=== PATIENT | male | born 2000 | race Caucasian/White ===

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

== ENCOUNTER 2023-09-18 16:58 | Emergency (ER) | payer OTHER ==
[~2023-09-18] VITALS: Ht 188 cm; Wt 80.0 kg
[2023-09-18 17:07] VITALS: TEMP 98
[2023-09-18] MEDS ORDERED: ARIP5TAB37 PO (17:07)
[2023-09-18] MEDS ORDERED: TRAZ-252 PO (17:07)
[2023-09-18] MEDS ORDERED: HYDR-4584 PO (17:07)
[2023-09-18] MEDS ORDERED: SERT-440 PO (17:07)
[2023-09-18 17:53] LABS: COVID AG,FIA SOURCE NASAL SWAB
[2023-09-18 17:54] LABS: BASOPHILS % (AUTO) 0.3 % (0.0-2.0); EOSINOPHILS % (AUTO) 0.7 % (1.0-6.0); HEMATOCRIT 46.3 % (41-53); LYMPHOCYTES # (AUTO) 2.6 K/uL (1.0-4.8); LYMPHOCYTES % (AUTO) 34.3 % (22.0-44.0); MEAN CORPUSCULAR HEMOGLOBIN 30.1 pg (26.0-34.0); MEAN CORPUSCULAR HGB CONC 34.7 G/dL (31.0-37.0); MEAN CORPUSCULAR VOLUME 87 fL (80-100); MONOCYTES # (AUTO) 0.3 K/uL (0.1-1.0); MONOCYTES % (AUTO) 4.1 % (2.0-9.0); NEUTROPHILS # (AUTO) 4.7 K/uL (1.8-7.7); NEUTROPHILS % (AUTO) 60.6 % (40.0-70.0); PLATELET COUNT (AUTO) 230 K/uL (150-450); RED BLOOD CELL COUNT(AUTO) 5.34 MIL/uL (4.50-5.90); RED CELL DISTRIBUTION WIDTH 13.7 % (11.5-14.5); WHITE BLOOD COUNT (AUTO) 7.7 K/uL (4.5-11.0)
[2023-09-18 18:11] LABS: ANION GAP 14 mmol/L (8-16); CALCIUM, TOTAL 9.6 mg/dL (8.8-10.5); CARBON DIOXIDE 24 mmol/L (22-29); CHLORIDE 110 mmol/L (98-107); CREATININE 0.75 mg/dL (0.60-1.30); GLOMERULAR FILTR. RATE CALC > 60 mL/min (>60); GLUCOSE,RANDOM 99 mg/dL (70-110); POTASSIUM 4.5 mmol/L (3.5-5.1); SODIUM SERUM 148 mmol/L (136-145); UREA NITROGEN, BLOOD 10 mg/dL (7-18)
[2023-09-18 18:18] LABS: TROPONIN I-HIGH SENSITIVITY 4 ng/L (<76)
[2023-09-18 18:25] LABS: B-TYPE NATRIURETIC PEPTIDE < 5 pg/mL (0-100)
[2023-09-18 18:33] LABS: SARS-COV2 (COVID) ANTIGEN,FIA Negative (Negative)
[2023-09-18 18:37] LABS: ALANINE AMINOTRANSFERASE 26 U/L (12-78); ALBUMIN 4.8 g/dL (3.4-5.0); ALKALINE PHOSPHATASE 100 U/L (46-116); ASPARTATE AMINOTRANSFERASE 24 U/L (15-37); BILIRUBIN,TOTAL 0.5 mg/dL (0.1-1.0); CREATINE KINASE, TOTAL ONLY 110 U/L (39-308); TOTAL PROTEIN, SERUM 8.7 g/dL (6.4-8.2)
[2023-09-18 18:39] LABS: INFLUENZA TYPE A NEGATIVE FOR TYPE A (NEGATIVE); INFLUENZA TYPE B NEGATIVE FOR TYPE B (NEGATIVE)
[2023-09-18 18:40] VITALS: BP 135/86; PULSE 81; RESP 20
[2023-09-18 18:50] LABS: ALCOHOL, BLOOD (SERUM) < 3 mg/dL (0-10)
== END 2023-09-18 19:09 | disposition home or self-care (01) ==
LOC: EMS 17:01
DX: R07.89 Other chest pain (principal); F41.9 Anxiety disorder, unspecified; F32.A Depression, unspecified; Z98.890 Other specified postprocedural states; Z20.822 Contact with and (suspected) exposure to COVID-19
CPT/HCPCS: 99285; 71045; 87426; 80053; 82550; 83880; 84484; 85025; 87804; 36415; 93005; G0480

== ENCOUNTER 2023-09-22 21:22 | Emergency (ER) | payer OTHER ==
[~2023-09-22] VITALS: Ht 188 cm; Wt 74.0 kg
[~2023-09-22 21:22] MED LIST: ARIP5TAB37 PO; HYDR-4584 PO; SERT-440 PO; TRAZ-252 PO
[2023-09-22 21:52] VITALS: TEMP 98.4
[2023-09-22 23:00] VITALS: BP 127/65; PULSE 70; RESP 18
== END 2023-09-23 01:06 | disposition home or self-care (01) ==
LOC: EMS 21:55
DX: F41.9 Anxiety disorder, unspecified (principal); F32.A Depression, unspecified; Z98.890 Other specified postprocedural states
CPT/HCPCS: 93005; 99283

== ENCOUNTER 2024-02-25 14:03 | Inpatient (IN) | payer MEDICAID, OTHER ==
[~2024-02-25] VITALS: Ht 188 cm; Wt 66.2 kg
[2024-02-25 15:47] LABS: BASOPHILS % (AUTO) 0.4 % (0.0-2.0); EOSINOPHILS % (AUTO) 0.2 % (1.0-6.0); HEMATOCRIT 46.8 % (41-53); HEMOGLOBIN 15.5 g/dL (13.5-17.5); LYMPHOCYTES # (AUTO) 1.7 K/uL (1.0-4.8); LYMPHOCYTES % (AUTO) 22.4 % (22.0-44.0); MEAN CORPUSCULAR HEMOGLOBIN 29.6 pg (26.0-34.0); MEAN CORPUSCULAR HGB CONC 33.2 G/dL (31.0-37.0); MEAN CORPUSCULAR VOLUME 89 fL (80-100); MONOCYTES # (AUTO) 0.5 K/uL (0.1-1.0); MONOCYTES % (AUTO) 7.3 % (2.0-9.0); NEUTROPHILS # (AUTO) 5.2 K/uL (1.8-7.7); NEUTROPHILS % (AUTO) 69.7 % (40.0-70.0); PLATELET COUNT (AUTO) 285 K/uL (150-450); RED BLOOD CELL COUNT(AUTO) 5.25 MIL/uL (4.50-5.90); RED CELL DISTRIBUTION WIDTH 13.3 % (11.5-14.5); WHITE BLOOD COUNT (AUTO) 7.5 K/uL (4.5-11.0)
[2024-02-25 15:54] LABS: ALCOHOL, URINE DRUG SCREEN NEGATIVE (NEGATIVE); AMPHET/METH SCREEN,URINE NEGATIVE (NEGATIVE); BARBITURATE SCREEN, URINE NEGATIVE (NEGATIVE); BENZODIAZEPINES SCREEN,URINE NEGATIVE (NEGATIVE); CANNABINOID SCREEN,URINE NEGATIVE (NEGATIVE); COCAINE SCREEN,URINE NEGATIVE (NEGATIVE); METHADONE SCREEN, URINE NEGATIVE (NEGATIVE); OPIATE SCREEN,URINE NEGATIVE (NEGATIVE); PHENCYCLIDINE SCREEN,URINE NEGATIVE (NEGATIVE)
[2024-02-25 15:58] LABS: ANION GAP 9 mmol/L (8-16); CALCIUM, TOTAL 9.7 mg/dL (8.8-10.5); CARBON DIOXIDE 27 mmol/L (22-29); CHLORIDE 101 mmol/L (98-107); CREATININE 0.76 mg/dL (0.60-1.30); GLOMERULAR FILTR. RATE CALC > 60 mL/min (>60); GLUCOSE,RANDOM 120 mg/dL (70-110); POTASSIUM 4.5 mmol/L (3.5-5.1); SODIUM SERUM 137 mmol/L (136-145); UREA NITROGEN, BLOOD 7 mg/dL (7-18)
[2024-02-25 15:59] LABS: ALCOHOL, BLOOD (SERUM) < 3 mg/dL (0-10)
[2024-02-25 16:04] LABS: ALANINE AMINOTRANSFERASE 32 U/L (12-78); ALBUMIN 4.9 g/dL (3.4-5.0); ALKALINE PHOSPHATASE 93 U/L (46-116); ASPARTATE AMINOTRANSFERASE 37 U/L (15-37); BILIRUBIN,TOTAL 0.8 mg/dL (0.1-1.0); TOTAL PROTEIN, SERUM 8.4 g/dL (6.4-8.2)
[2024-02-25] MEDS: LORazepam 2 MG/ML VIAL IM ONE (16:40)
[2024-02-25] MEDS: HALOPERIDOL LACTATE 5 MG/ML VIAL IM ONE (16:40)
[2024-02-25] MEDS: DiphenhydrAMINE HCL 50 MG/ML VIAL IM ONE (16:40)
[2024-02-25] MEDS ORDERED: ZOLPIDEM TARTRATE 10 MG TABLET PO PRN (17:45)
[2024-02-25 17:53] LABS: COVID AG,FIA SOURCE NASAL SWAB
[2024-02-25 18:08] LABS: SARS-COV2 (COVID) ANTIGEN,FIA Negative (Negative)
[2024-02-26 10:25] VITALS: BP 136/78; PULSE 95; RESP 18; TEMP 99.5; O2SAT 100
[2024-02-26] MEDS: HALOPERIDOL 5 MG TABLET PO PRN (16:11)
[2024-02-26] MEDS: LORazepam 2 MG TABLET PO PRN (16:11)
[2024-02-26 20:06] VITALS: BP 122/74; PULSE 95; RESP 18; TEMP 99; O2SAT 98
[2024-02-27] MEDS ORDERED: LOPERAMIDE HCL 2 MG CAPSULE PO PRN (07:15)
[2024-02-27] MEDS ORDERED: ONDANSETRON HCL 4 MG TABLET PO PRN (07:15)
[2024-02-27] MEDS ORDERED: GuaiFENesin/D-METHORPHAN [SUGAR-FREE] 200-20MG/10 ML SYRUP UDCUP PO PRN (07:15)
[2024-02-27] MEDS ORDERED: CloNIDine HCL 0.1 MG TABLET PO PRN (07:15)
[2024-02-27] MEDS ORDERED: PETROLATUM,WHITE 28 GM JELLY TP PRN (07:15)
[2024-02-27] MEDS ORDERED: MAG HYDROX/ALUMINUM HYD/SIMETH ES 30 ML SUSPENSION UDCUP PO PRN (07:15)
[2024-02-27] MEDS ORDERED: MAGNESIUM HYDROXIDE SUSPENSION 30 ML UDCUP PO PRN (07:15)
[2024-02-27] MEDS ORDERED: NICOTINE 14 MG/24 HOUR PATCH TD PRN (07:15)
[2024-02-27] MEDS ORDERED: ALBUTEROL SULFATE HFA 90 MCG/PUFF 8 GM INHALER IH PRN (07:15)
[2024-02-27] MEDS ORDERED: IBUPROFEN 400 MG TABLET PO PRN (07:15)
[2024-02-27] MEDS ORDERED: ACETAMINOPHEN 325 MG TABLET PO PRN (07:15)
[2024-02-27 08:30] VITALS: BP 123/73; PULSE 111; RESP 16; TEMP 98.7; O2SAT 99
[2024-02-27] MEDS: ARIPiprazole 10 MG TABLET PO SCH (12:16)
[2024-02-27] MEDS: SERTRALINE HCL 100 MG TABLET PO SCH (12:16)
[2024-02-27 20:16] VITALS: BP 120/71; PULSE 89; TEMP 98.4; O2SAT 99
[2024-02-28 08:51] VITALS: BP 115/82; PULSE 98; RESP 17; TEMP 97.8; O2SAT 96
[2024-02-28 09:53] LABS: HEMOGLOBIN A1C 5.2 % (3.8-5.6)
[2024-02-28 10:04] LABS: CHOL/HDL RATIO 2.6 (4.2-7.3); THYROID STIMULATING HORMONE 0.52 uIU/mL (0.36-3.74)
[2024-02-28 20:15] VITALS: BP 139/89; PULSE 89; TEMP 98.4; O2SAT 97
[2024-02-29 08:29] VITALS: BP 123/82; PULSE 105; RESP 16; TEMP 98.4; O2SAT 99
[2024-02-29] MEDS: DOCUSATE SODIUM 100 MG CAPSULE PO PRN (08:58)
[2024-02-29] MEDS ORDERED: SERT-162 PO (10:07)
[2024-02-29] MEDS ORDERED: ARIP10TA38 PO ×2 (10:08→12:20)
[2024-02-29] MEDS ORDERED: SERT-440 PO (12:20)
== END 2024-02-29 11:45 | disposition home or self-care (01) | DRG 750 ==
LOC: EMS 14:03 → B3A 02-26 08:28
PROVIDERS: ADMIT Psychiatry & Neurology Child & Adolescent Psychiatry; ATTEND Psychiatry & Neurology Child & Adolescent Psychiatry
DX: F25.0 Schizoaffective disorder, bipolar type (principal); E44.0 Moderate protein-calorie malnutrition; Z20.822 Contact with and (suspected) exposure to COVID-19; R73.9 Hyperglycemia, unspecified; G47.00 Insomnia, unspecified; F22 Delusional disorders; Z68.1 Body mass index [BMI] 19.9 or less, adult
CPT/HCPCS: 80053; 80061; 80307; 83036; 84443; 85025; G0480; J1200; J1630; J2060

== ENCOUNTER 2024-03-07 11:05 | Inpatient (IN) | payer MEDICAID, OTHER ==
[~2024-03-07] VITALS: Ht 188 cm; Wt 66.0 kg
[~2024-03-07 11:05] MED LIST changes: +ARIP10TA38 PO; -ARIP5TAB37 PO; -HYDR-4584 PO; +SERT-162 PO; -TRAZ-252 PO
[2024-03-07] MEDS ORDERED: LORazepam 2 MG TABLET PO PRN ×2 (12:00→23:00)
[2024-03-07] MEDS ORDERED: QUEtiapine FUMARATE 100 MG TABLET PO PRN (12:00)
[2024-03-07] MEDS ORDERED: ZOLPIDEM TARTRATE 10 MG TABLET PO PRN (12:00)
[2024-03-07 12:04] LABS: BASOPHILS % (AUTO) 0.2 % (0.0-2.0); EOSINOPHILS % (AUTO) 0.1 % (1.0-6.0); HEMATOCRIT 44.9 % (41-53); HEMOGLOBIN 14.8 g/dL (13.5-17.5); LYMPHOCYTES # (AUTO) 0.9 K/uL (1.0-4.8); MEAN CORPUSCULAR HEMOGLOBIN 29.7 pg (26.0-34.0); MEAN CORPUSCULAR HGB CONC 32.9 G/dL (31.0-37.0); MEAN CORPUSCULAR VOLUME 90 fL (80-100); MONOCYTES # (AUTO) 0.4 K/uL (0.1-1.0); MONOCYTES % (AUTO) 6.5 % (2.0-9.0); NEUTROPHILS # (AUTO) 4.9 K/uL (1.8-7.7); NEUTROPHILS % (AUTO) 79.2 % (40.0-70.0); PLATELET COUNT (AUTO) 239 K/uL (150-450); RED BLOOD CELL COUNT(AUTO) 4.99 MIL/uL (4.50-5.90); RED CELL DISTRIBUTION WIDTH 13.7 % (11.5-14.5); WHITE BLOOD COUNT (AUTO) 6.1 K/uL (4.5-11.0)
[2024-03-07] MEDS: LORazepam 1 MG TABLET PO ONE (12:13)
[2024-03-07] MEDS: HALOPERIDOL 5 MG TABLET PO ONE (12:13)
[2024-03-07 12:14] LABS: ANION GAP 11 mmol/L (8-16); CALCIUM, TOTAL 9.4 mg/dL (8.8-10.5); CARBON DIOXIDE 26 mmol/L (22-29); CHLORIDE 100 mmol/L (98-107); CREATININE 0.88 mg/dL (0.60-1.30); GLOMERULAR FILTR. RATE CALC > 60 mL/min (>60); GLUCOSE,RANDOM 125 mg/dL (70-110); SODIUM SERUM 136 mmol/L (136-145); UREA NITROGEN, BLOOD 7 mg/dL (7-18)
[2024-03-07 12:19] LABS: ALANINE AMINOTRANSFERASE 31 U/L (12-78); ALBUMIN 4.4 g/dL (3.4-5.0); ALKALINE PHOSPHATASE 86 U/L (46-116); ASPARTATE AMINOTRANSFERASE 35 U/L (15-37); BILIRUBIN,TOTAL 0.5 mg/dL (0.1-1.0); TOTAL PROTEIN, SERUM 7.8 g/dL (6.4-8.2)
[2024-03-07 12:22] LABS: ALCOHOL, BLOOD (SERUM) < 3 mg/dL (0-10)
[2024-03-07 12:47] LABS: COVID AG,FIA SOURCE NASAL SWAB
[2024-03-07] MEDS: HALOPERIDOL 5 MG TABLET PO PRN (12:59)
[2024-03-07] MEDS: LORazepam 2 MG TABLET PO PRN (12:59)
[2024-03-07 14:01] LABS: SARS-COV2 (COVID) ANTIGEN,FIA Positive (Negative)
[2024-03-07] MEDS ORDERED: BACITRACIN 28 GM OINTMENT TP PRN (16:30)
[2024-03-07] MEDS ORDERED: MAGNESIUM HYDROXIDE SUSPENSION 30 ML UDCUP PO PRN (16:30)
[2024-03-07] MEDS ORDERED: BENZOCAINE/MENTHOL LOZENGE PO PRN (16:30)
[2024-03-07] MEDS ORDERED: DOCUSATE SODIUM 100 MG CAPSULE PO PRN (16:30)
[2024-03-07] MEDS ORDERED: ALBUTEROL SULFATE HFA 90 MCG/PUFF 8 GM INHALER IH PRN (16:30)
[2024-03-07] MEDS ORDERED: CloNIDine HCL 0.1 MG TABLET PO PRN (16:30)
[2024-03-07] MEDS ORDERED: PETROLATUM,WHITE 28 GM JELLY TP PRN (16:30)
[2024-03-07] MEDS ORDERED: MAG HYDROX/ALUMINUM HYD/SIMETH ES 30 ML SUSPENSION UDCUP PO PRN (16:30)
[2024-03-07] MEDS ORDERED: IBUPROFEN 600 MG TABLET PO PRN (16:30)
[2024-03-07] MEDS ORDERED: ONDANSETRON HCL 4 MG TABLET PO PRN (16:30)
[2024-03-07] MEDS ORDERED: LOPERAMIDE HCL 2 MG CAPSULE PO PRN (16:30)
[2024-03-07] MEDS ORDERED: OMEPRAZOLE 20 MG CAPSULE PO PRN (16:30)
[2024-03-07] MEDS ORDERED: ACETAMINOPHEN 325 MG TABLET PO PRN (19:00)
[2024-03-07] MEDS ORDERED: ONDANSETRON HCL 4 MG/2 ML VIAL IVP PRN (19:00)
[2024-03-07] MEDS: LORazepam 2 MG/ML VIAL IM ONE (22:41)
[2024-03-07] MEDS: DiphenhydrAMINE HCL 50 MG/ML VIAL IM ONE (22:44)
[2024-03-07] MEDS: HALOPERIDOL LACTATE 5 MG/ML VIAL IM ONE (22:44)
[2024-03-07] MEDS ORDERED: LORazepam 2 MG/ML VIAL IVP PRN (23:15)
[2024-03-07 23:55] VITALS: BP 122/78; PULSE 87; RESP 20; TEMP 98.1
[2024-03-08] MEDS ORDERED: HEPARIN SODIUM,PORCINE 5,000 UNITS/ML VIAL SQ SCH
[2024-03-08] MEDS: MAGNESIUM SULFATE 2 GM, MVI, ADULT NO.1 WITH VIT K 10 ML, THIAMINE 100 MG, FOLIC ACID 1... IV ONE (03:04)
[2024-03-08 04:30] VITALS: BP 117/70; PULSE 102; RESP 18; TEMP 98.9
[2024-03-08] MEDS ORDERED: LORazepam 2 MG TABLET PO PRN (07:00)
[2024-03-08 07:01] LABS: BASOPHILS % (AUTO) 0.4 % (0.0-2.0); EOSINOPHILS % (AUTO) 0.4 % (1.0-6.0); HEMATOCRIT 44.2 % (41-53); HEMOGLOBIN 14.8 g/dL (13.5-17.5); LYMPHOCYTES # (AUTO) 0.9 K/uL (1.0-4.8); MEAN CORPUSCULAR HEMOGLOBIN 30.1 pg (26.0-34.0); MEAN CORPUSCULAR HGB CONC 33.4 G/dL (31.0-37.0); MEAN CORPUSCULAR VOLUME 90 fL (80-100); MONOCYTES # (AUTO) 0.5 K/uL (0.1-1.0); MONOCYTES % (AUTO) 8.9 % (2.0-9.0); NEUTROPHILS # (AUTO) 3.8 K/uL (1.8-7.7); NEUTROPHILS % (AUTO) 72.3 % (40.0-70.0); PLATELET COUNT (AUTO) 215 K/uL (150-450); RED BLOOD CELL COUNT(AUTO) 4.92 MIL/uL (4.50-5.90); RED CELL DISTRIBUTION WIDTH 13.6 % (11.5-14.5); WHITE BLOOD COUNT (AUTO) 5.2 K/uL (4.5-11.0)
[2024-03-08 07:18] LABS: ANION GAP 9 mmol/L (8-16); CALCIUM, TOTAL 9.5 mg/dL (8.8-10.5); CARBON DIOXIDE 27 mmol/L (22-29); CHLORIDE 102 mmol/L (98-107); CREATININE 0.89 mg/dL (0.60-1.30); GLOMERULAR FILTR. RATE CALC > 60 mL/min (>60); GLUCOSE,RANDOM 114 mg/dL (70-110); POTASSIUM 4.4 mmol/L (3.5-5.1); SODIUM SERUM 138 mmol/L (136-145); UREA NITROGEN, BLOOD 9 mg/dL (7-18)
[2024-03-08] MEDS: LORazepam 2 MG TABLET PO SCH (07:18)
[2024-03-08 08:05] VITALS: RESP 20
[2024-03-08] MEDS: DOCUSATE SODIUM 100 MG CAPSULE PO SCH (08:43)
[2024-03-08] MEDS: HALOPERIDOL LACTATE 5 MG/ML VIAL IM PRN (10:30)
[2024-03-08] MEDS: SERTRALINE HCL 100 MG TABLET PO SCH (12:13)
[2024-03-08] MEDS: ARIPiprazole 15 MG TABLET PO SCH (12:14)
[2024-03-08 15:01] VITALS: RESP 20
[2024-03-08 19:54] VITALS: BP 135/84; PULSE 107; RESP 20; TEMP 97.6
[2024-03-08] MEDS: ZOLPIDEM TARTRATE 10 MG TABLET PO PRN (23:15)
[2024-03-09 06:20] VITALS: RESP 20
[2024-03-09 08:36] VITALS: BP 144/92; PULSE 103; RESP 19; TEMP 98.4
[2024-03-09 16:52] VITALS: BP 142/99; PULSE 81; RESP 19; TEMP 97.6
[2024-03-09 20:30] VITALS: BP 147/91; PULSE 103; RESP 20; TEMP 98.3
[2024-03-09] MEDS ORDERED: ZOLPIDEM TARTRATE 5 MG TABLET PO PRN (20:30)
[2024-03-10 03:00] VITALS: BP 131/85; PULSE 87; RESP 20; TEMP 98.2
[2024-03-10] MEDS ORDERED: LORazepam 1 MG TABLET PO PRN (07:00)
[2024-03-10 08:08] VITALS: BP 130/85; PULSE 96; RESP 18; TEMP 98
[2024-03-10] MEDS: ACETAMINOPHEN 325 MG TABLET PO PRN (08:47)
[2024-03-10] MEDS ORDERED: LORazepam 1 MG TABLET PO SCH (09:00)
[2024-03-10 11:33] LABS: BASOPHILS % (AUTO) 0.3 % (0.0-2.0); EOSINOPHILS % (AUTO) 0.1 % (1.0-6.0); HEMATOCRIT 45.4 % (41-53); LYMPHOCYTES # (AUTO) 0.7 K/uL (1.0-4.8); LYMPHOCYTES % (AUTO) 9.1 % (22.0-44.0); MEAN CORPUSCULAR HEMOGLOBIN 29.7 pg (26.0-34.0); MEAN CORPUSCULAR HGB CONC 33.1 G/dL (31.0-37.0); MEAN CORPUSCULAR VOLUME 90 fL (80-100); MONOCYTES # (AUTO) 0.4 K/uL (0.1-1.0); MONOCYTES % (AUTO) 4.8 % (2.0-9.0); NEUTROPHILS # (AUTO) 6.4 K/uL (1.8-7.7); PLATELET COUNT (AUTO) 234 K/uL (150-450); RED BLOOD CELL COUNT(AUTO) 5.05 MIL/uL (4.50-5.90); RED CELL DISTRIBUTION WIDTH 13.1 % (11.5-14.5); WHITE BLOOD COUNT (AUTO) 7.4 K/uL (4.5-11.0)
[2024-03-10 11:34] LABS: NEUTROPHILS % (AUTO) 85.7 % (40.0-70.0)
[2024-03-10 11:58] LABS: TROPONIN I-HIGH SENSITIVITY Less Than 4 ng/L (<76)
[2024-03-10 12:24] LABS: ANION GAP 14 mmol/L (8-16); CALCIUM, TOTAL 9.4 mg/dL (8.8-10.5); CARBON DIOXIDE 21 mmol/L (22-29); CHLORIDE 97 mmol/L (98-107); CREATININE 1.09 mg/dL (0.60-1.30); GLOMERULAR FILTR. RATE CALC > 60 mL/min (>60); GLUCOSE,RANDOM 119 mg/dL (70-110); POTASSIUM 4.6 mmol/L (3.5-5.1); SODIUM SERUM 132 mmol/L (136-145); UREA NITROGEN, BLOOD 10 mg/dL (7-18)
[2024-03-10 12:40] LABS: GLUCOMETER DEV NAME(LOC) 4E.2; GLUCOSE,POINT OF CARE 137 MG/DL (70-110)
[2024-03-10 14:15] VITALS: BP 145/90; PULSE 111; RESP 18; TEMP 97.6
[2024-03-10] MEDS: LORazepam 2 MG/ML VIAL IVP PRN (15:06)
[2024-03-10 20:37] VITALS: BP 126/83; PULSE 109; RESP 18; TEMP 98.3
[2024-03-11 04:23] VITALS: BP 134/81; PULSE 100; RESP 18; TEMP 97.9
[2024-03-11] MEDS ORDERED: LORazepam 1 MG TABLET PO PRN (07:00)
[2024-03-11 08:20] VITALS: BP 132/86; PULSE 100; RESP 20; TEMP 97.7
[2024-03-11 15:15] VITALS: BP 135/85; PULSE 100; RESP 20; TEMP 97.5
[2024-03-11 19:12] VITALS: BP 133/81; PULSE 107; RESP 19; TEMP 98.2
[2024-03-12 04:50] VITALS: BP 117/78; PULSE 96; RESP 19; TEMP 97.9
[2024-03-12 07:10] VITALS: BP 124/80; PULSE 92; RESP 18; TEMP 98.1
[2024-03-12 15:18] VITALS: BP 128/84; PULSE 94; RESP 18; TEMP 97.8
[2024-03-12 16:59] LABS: COVID AG,FIA SOURCE NASAL SWAB
[2024-03-12 17:17] LABS: SARS-COV2 (COVID) ANTIGEN,FIA Negative (Negative)
== END 2024-03-12 21:30 | DRG 137 ==
LOC: EMS 11:05 → UNDOADMIN 13:05 → B3A 13:05 → EDH 19:01 → 4E 23:40
PROVIDERS: ADMIT Internal Medicine; ATTEND Internal Medicine
DX: U07.1 COVID-19 (principal); F25.9 Schizoaffective disorder, unspecified; F10.239 Alcohol dependence with withdrawal, unspecified
CPT/HCPCS: 71045; 80048; 80053; 82962; 83735; 84484; 85025; 87635; 93005; 93306; 99285; G0378; G0480; J1200; J1630; J2060; J3411; J3475; J3490; J7030; 36415-L1; 36415-TC

== ENCOUNTER 2024-03-12 15:00 | Inpatient (IN) | payer MEDICAID ==
[~2024-03-12] VITALS: Ht 188 cm; Wt 70.8 kg
[2024-03-12 21:35] VITALS: BP 139/88; PULSE 90; RESP 18; TEMP 98.2; O2SAT 98
[2024-03-13] MEDS: LORazepam 2 MG TABLET PO PRN (05:21)
[2024-03-13] MEDS ORDERED: PETROLATUM,WHITE 28 GM JELLY TP PRN (07:00)
[2024-03-13] MEDS ORDERED: LOPERAMIDE HCL 2 MG CAPSULE PO PRN (07:00)
[2024-03-13] MEDS ORDERED: CloNIDine HCL 0.1 MG TABLET PO PRN (07:00)
[2024-03-13] MEDS ORDERED: MAG HYDROX/ALUMINUM HYD/SIMETH ES 30 ML SUSPENSION UDCUP PO PRN (07:00)
[2024-03-13] MEDS ORDERED: ACETAMINOPHEN 325 MG TABLET PO PRN (07:00)
[2024-03-13] MEDS ORDERED: IBUPROFEN 600 MG TABLET PO PRN (07:00)
[2024-03-13] MEDS ORDERED: ALBUTEROL SULFATE HFA 90 MCG/PUFF 8 GM INHALER IH PRN (07:00)
[2024-03-13] MEDS ORDERED: DOCUSATE SODIUM 100 MG CAPSULE PO PRN (07:00)
[2024-03-13] MEDS ORDERED: MAGNESIUM HYDROXIDE SUSPENSION 30 ML UDCUP PO PRN (07:00)
[2024-03-13] MEDS ORDERED: ONDANSETRON HCL 4 MG TABLET PO PRN (07:00)
[2024-03-13] MEDS ORDERED: OMEPRAZOLE 20 MG CAPSULE PO PRN (07:00)
[2024-03-13] MEDS ORDERED: BACITRACIN 28 GM OINTMENT TP PRN (07:00)
[2024-03-13] MEDS ORDERED: BENZOCAINE/MENTHOL LOZENGE PO PRN (07:00)
[2024-03-13 08:30] VITALS: RESP 18
[2024-03-13] MEDS: ARIPiprazole 10 MG TABLET PO SCH (12:39)
[2024-03-13] MEDS: SERTRALINE HCL 100 MG TABLET PO SCH (12:39)
[2024-03-13 21:26] VITALS: BP 137/83; PULSE 97; RESP 18; TEMP 97.9; O2SAT 98
[2024-03-13] MEDS: HALOPERIDOL 5 MG TABLET PO PRN (21:30)
[2024-03-13] MEDS: ZOLPIDEM TARTRATE 10 MG TABLET PO PRN (22:09)
[2024-03-14 09:58] VITALS: BP 124/78; PULSE 90; RESP 20; TEMP 97.6; O2SAT 100
[2024-03-14 20:45] VITALS: BP 130/80; PULSE 86; RESP 19; TEMP 97.8; O2SAT 96
[2024-03-15 08:26] VITALS: BP 142/74; PULSE 89; RESP 18; TEMP 97.9; O2SAT 98
[2024-03-15] MEDS ORDERED: ARIP10TA38 PO (14:53)
[2024-03-15] MEDS ORDERED: SERT-440 PO (14:53)
== END 2024-03-15 19:55 | disposition home or self-care (01) | DRG 750 ==
LOC: 3EI 21:39
PROVIDERS: ADMIT Psychiatry & Neurology Child & Adolescent Psychiatry; ATTEND Psychiatry & Neurology Child & Adolescent Psychiatry
DX: F20.9 Schizophrenia, unspecified (principal); U07.1 COVID-19; F41.9 Anxiety disorder, unspecified; G47.00 Insomnia, unspecified; F10.90 Alcohol use, unspecified, uncomplicated; Z72.0 Tobacco use; Z79.899 Other long term (current) drug therapy
CPT/HCPCS: 87081; J3535